=== PATIENT | female | born 1970 | race Two or more races ===

== ENCOUNTER 2017-01-20 18:20 | Emergency (ER) | payer MEDICAID, OTHER ==
[~2017-01-20] VITALS: Ht 162.6 cm; Wt 92.5 kg
[2017-01-20 18:41] VITALS: BP 159/100
[2017-01-20] MEDS ORDERED: TETANUS-DIPTH-ACEL PERTUSSIS 0.5ML SYRG IM ONE (20:30)
== END 2017-01-20 20:40 | disposition home or self-care (01) ==
LOC: ER 18:20
DX: S61.217A Laceration without foreign body of left little finger without damage to nail, initial encounter (principal); W45.8XXA Other foreign body or object entering through skin, initial encounter; Y93.89 Activity, other specified; Y99.8 Other external cause status; Y92.89 Other specified places as the place of occurrence of the external cause; Z23 Encounter for immunization
CPT/HCPCS: 12002; 90471; 90715